=== PATIENT | female | born 1985 | race African-American/Black ===

== ENCOUNTER 2020-08-12 12:35 | Emergency (ER) | payer OTHER, SELFPAY ==
[2020-08-12 12:43] VITALS: BP 151/79; PULSE 93; RESP 16; TEMP 36.7; O2SAT 100
--- NOTE | 2020-08-12 13:02 | ED.EAR ---
HPI - Ear Problem General Chief complaint: Neck Pain/Injury Stated complaint: dizzy/lightheaded Time Seen by Provider: 08/12/20 13:02 Source: patient History of Present Illness HPI Narrative: Patient presents with bilateral ear pain dizziness at times. Patient states she was Covid 19+ last month and has finished her isolation per [facility]. Patient states she continues to have fatigue. No cough no shortness of breath no chest pain. Patient has not taken any [id number] for her symptoms. MD Complaint: ear pain Location: right ear Duration: intermittent Severity: mild Related Data Home Medications Medication Instructions Recorded Confirmed triamcinolone acetonide 08/12/20 08/12/20 Allergies Allergy/AdvReac Type Severity Reaction Status Date / Time hydrocodone Allergy Hives Verified 08/12/20 13:05 Penicillins Allergy Hives Verified 08/12/20 13:04 Sulfa (Sulfonamide Allergy Hives Verified 08/12/20 13:04 Antibiotics) Review of Systems Review of Systems: Narrative: CONSTITUTIONAL: Denies chills, or sweats. Reports fever and generalized body aches EYES: Denies visual changes, redness, or discharge. ENT: Denies otalgia. Reports nasal congestion runny nose and sore throat CARDIOVASCULAR: Denies chest pain, palpitations, or edema. RESPIRATORY: Denies dyspnea. Reports occasional cough GASTROINTESTINAL: Denies abdominal pain, nausea, vomiting, or diarrhea. GENITOURINARY: Denies dysuria or hematuria. SKIN: Denies rash or itching. MUSCULOSKELETAL: Denies back pain, joint pain, or myalgia. Reports generalized body aches NEUROLOGIC: Denies headache, numbness, or weakness. PSYCHIATRIC: Denies anxiety or depression. Constitutional: Constitutional: Reports as per HPI PMFSH Comments At time of signature, agree with nursing past medical, surgical, social and family history. There is no relevant family history pertinent to the presenting complaint Exam Narrative: Exam Narrative: The patient is a well-developed, well-nourished in no acute distress. SKIN: Skin is warm and dry without erythema, swelling or exudate. There is good turgor. No tenting. HEAD: Atraumatic. Normocephalic. No temporal or scalp tenderness. EYES: Moist and bright. Sclera and conjunctivae normal. No discharge. PERRLA. Extraocular motions intact. Gross visual acuity intact. EARS: Pinna is normal shape and contour.bilaterall cerumen noted no gross hearing deficit. right ear canal moderate erythema TM bulging left TM mild erythema right TM dullness mild postnasal drainage NOSE: pink, moist mucosa with good air movement. Clear rhinorrhea without nasal flaring. Septum midline. Mouth: moist mucous membranes. THROAT; mild erythema noted to posterior oropharynx with moderate postnasal drainage. Without exudate or ulceration.. Uvula midline. Normal movement of soft palate. NECK: Supple and nontender with full range of motion without discomfort. No meningeal signs. LUNGS: Equal and bilateral breath sounds without wheezes, rales or rhonchi. CHEST: The chest wall is without retractions or use of accessory muscles. HEART: Has a regular rate and rhythm without murmur, gallops, click or rub. ABDOMEN: Soft, nontender with positive active bowel sounds. No rebound tenderness. EXTREMITIES: Without cyanosis, clubbing or edema. Equal 2+ distal pulses and 2 second capillary refill noted. NEUROLOGIC: alert, active, . The patient moves all extremities with normal muscle strength. Normal muscle tone is noted. Normal coordination is noted. NO focal neurological findings noted. Course Vital Signs Vital signs: Vital Signs Temperature 36.7 C 08/12/20 12:43 Pulse Rate 93 08/12/20 12:43 Respiratory Rate 16 08/12/20 12:43 Blood Pressure 151/79 H 08/12/20 12:43 Pulse Oximetry 100 08/12/20 12:43 Temperature 36.7 C 08/12/20 12:43 Pulse Rate 93 08/12/20 12:43 Respiratory Rate 16 08/12/20 12:43 Blood Pressure 151/79 H 08/12/20 12:43 Pu
== END 2020-08-12 13:26 | disposition home or self-care (01) ==
PROVIDERS: Emergency Provider Nurse Practitioner Family; PCP Internal Medicine
DX: B33.8 Other specified viral diseases (principal); H67.3 Otitis media in diseases classified elsewhere, bilateral
CPT/HCPCS: 99213; G0463

== ENCOUNTER 2021-10-31 18:51 | Emergency (ER) | payer OTHER, SELFPAY ==
--- NOTE | ~2021-10-31 | XR_ITS ---
EXAMINATION: XR foot LT min 3V DATE: 10/31/2021 20:21 INDICATION: Left foot pain, initial encounter TECHNIQUE: Dorsoplantar, lateral, and 2 oblique views of the left foot were obtained. COMPARISON: None. FINDINGS: There is a linear heterotopic ossification projecting dorsal to the navicular on the latera l view. There is overlying the anterior soft tissue swelling overlying the tarsals. The joint spaces are maintained. Bone alignment is normal. IMPRESSION: 1. Possible dorsal tarsal avulsion injury. 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
--- NOTE | ~2021-10-31 | XR_ITS ---
EXAMINATION: XR tibia fibula LT 2V INDICATION: Left leg pain TECHNIQUE: Two views of the left tibia and fibula are obtained on four radiographs. COMPARISON: None available FINDINGS: Bone alignment is normal. There is no fracture. The soft tissues are unremarkable. IMPRESSION: 1. No acute osseous abnormality. Reviewed, dictated and finalized at location F. MANAGER
[2021-10-31 19:47] VITALS: BP 152/84; PULSE 84; RESP 16; TEMP 36.8; O2SAT 100
--- NOTE | 2021-10-31 20:21 | PC.NURSE ---
PT DECLINED ICE FOR COMFORT AND WHEELCHAIR TO RADIOLOGY
--- NOTE | 2021-10-31 20:35 | ED.LOWEXIN ---
HPI - Extremity Injury (Lower) General Chief Complaint: Extremity Injury, Lower Stated Complaint: lt leg pain Time Seen by Provider: 10/31/21 20:28 Source: patient and RN notes reviewed Mode of arrival: ambulatory Limitations: no limitations History of Present Illness HPI Narrative: Patient presents today complaining of an injury to her left leg and foot. She slipped on some ice earlier this morning going out her car. Her left leg slid underneath her car. Since that time she has had pain in her left first and second toe, the dorsum of her foot, and her left lower leg. She currently rates her pain /. She reports numbness and tingling to the first and second toes. She has been taking Tylenol and aspirin with some mild relief. She also soaked in some Epsom salt. Pain increases with weightbearing. MD complaint: leg injury and foot injury Related Data Home Medications Medication Instructions Recorded Confirmed triamcinolone acetonide 08/12/20 08/12/20 Allergies Allergy/AdvReac Type Severity Reaction Status Date / Time hydrocodone Allergy Hives Verified 10/31/21 20:47 Penicillins Allergy Hives Verified 10/31/21 20:47 Sulfa (Sulfonamide Allergy Hives Verified 10/31/21 20:47 Antibiotics) Review of Systems Review of Systems: CONSTITUTIONAL: Denies body aches, fever, chills, or sweats. EYES: Denies visual changes, redness, or discharge. ENT: Denies rhinorrhea, congestion, sore throat, or otalgia. CARDIOVASCULAR: Denies chest pain, palpitations, or edema. RESPIRATORY: Denies cough or dyspnea. GASTROINTESTINAL: Denies abdominal pain, nausea, vomiting, or diarrhea. GENITOURINARY: Denies dysuria or hematuria. SKIN: Denies rash, itching, or wounds. MUSCULOSKELETAL: Denies back pain, or myalgia. + Left foot and leg injury NEUROLOGIC: Denies headache, , or weakness. + Numbness and tingling to the left first and second toes PSYCH: Denies depression or anxiety. PMFSH Comments At time of signature, I have reviewed and agree with nursing past medical, surgical, social and family history unless otherwise noted. Please see nursing chart for further information. There is no relevant family history pertinent to the presenting complaint Exam Narrative: GENERAL: Well-appearing, well-nourished, and in no acute distress. HEAD: Normocephalic, atraumatic. EYES: EOMI. No redness or drainage. Conjunctivae normal. ENT: Mucous membranes pink and moist. NECK: Normal AROM. CHEST: No respiratory distress. EXTREMITIES: Left foot: Mild edema and ecchymosis to the left first toe. Tenderness to the first and second toes. Distal sensation intact in all toes. Capillary refill normal. Painful range of motion toes 1 and 2. Localized edema to the proximal dorsum of the foot. This extends laterally, just distal to the lateral malleolus. SKIN: Warm, dry, no rash. Capillary refill normal. Normal skin turgor. NEURO: No focal deficits. Alert and oriented x3. Gait steady. Patient ambulated to and from the x-ray. PSYCH: Normal affect. No signs of depression or anxiety. Course Course Level of Care: Express Care Visit Vital Signs Vital signs: Vital Signs Temperature 98.2 F 10/31/21 19:47 Pulse Rate 84 10/31/21 19:47 Respiratory Rate 16 10/31/21 19:47 Blood Pressure 152/84 H 10/31/21 19:47 Pulse Oximetry 100 10/31/21 19:47 Temperature 98.2 F 10/31/21 19:47 Pulse Rate 84 10/31/21 19:47 Respiratory Rate 16 10/31/21 19:47 Blood Pressure 152/84 H 10/31/21 19:47 Pulse Oximetry 100 10/31/21 19:47 Reviewed. Pt has been instructed to follow up with her PCP regarding her elevated blood pressure today. Procedures Orthopedic Splinting/Casting Injury #1: Splinting/Casting Date: 10/31/21 Splinting/Casting Time: 20:52 Side: left Lower Extremity Injury Location: foot Lower Extremity Immobilizer: posterior splint OCL: short leg Pre-Procedure Neuro Vascular Exam:
== END 2021-10-31 20:55 | disposition home or self-care (01) ==
PROVIDERS: Emergency Provider Nurse Practitioner; PCP Internal Medicine
DX: S92.902A Unspecified fracture of left foot, initial encounter for closed fracture (principal); W00.0XXA Fall on same level due to ice and snow, initial encounter
CPT/HCPCS: 29515; 73590; 73630; 99214; G0463

== ENCOUNTER 2022-01-11 14:33 | Emergency (ER) | payer OTHER, SELFPAY ==
[2022-01-11 14:38] VITALS: BP 147/78; PULSE 115; RESP 20; TEMP 37.1; O2SAT 98
--- NOTE | 2022-01-11 15:24 | ED.URI ---
HPI - URI/Sore Throat General Chief Complaint: Upper Respiratory Infection Stated Complaint: Congestion/Cough Time Seen by Provider: 01/11/22 15:24 Source: patient and RN notes reviewed Mode of arrival: ambulatory Limitations: no limitations History of Present Illness HPI Narrative: 36-year-old female presented for complaint of headache, body aches, sinus pressure/congestion, cough, fever/chills. For 3 days. Fever 101 today, did not take anything and temp went down to 98 per pt. Cough related to postnasal drainage per patient. Left ear pain worsening today. Denies sick contacts. She has not had flu vaccine. She is not boosted for COVID. Not taking anything for sx. MD elicited complaint: cough Related Data Home Medications Medication Instructions Recorded Confirmed No Home Medications 01/11/22 01/11/22 Allergies Allergy/AdvReac Type Severity Reaction Status Date / Time hydrocodone Allergy Hives Verified 01/11/22 14:52 Penicillins Allergy Hives Verified 01/11/22 14:52 Sulfa (Sulfonamide Allergy Hives Verified 01/11/22 14:52 Antibiotics) Review of Systems Review of Systems: CONSTITUTIONAL: Endorses malaise, chills, sweats, fever EYES: Denies visual changes, redness, or discharge ENT: Reports rhinorrhea, congestion, sinus pain, otalgia, sore throat CARDIOVASCULAR: Denies chest pain, palpitations, edema RESPIRATORY: Reports cough, post nasal drainage. Denies dyspnea GASTROINTESTINAL: Denies abdominal pain, nausea, vomiting, diarrhea SKIN: Denies rash or itching MUSCULOSKELETAL: Endorses myalgia NEUROLOGIC: Denies headache Exam Narrative: GENERAL: Ill-appearing, nontoxic HEAD: Normocephalic EYES: PERRLA, conjunctivae clear ENT: Mucous membranes moist. TM pearly cervantes with light reflex and erythematous canals bilaterally; no tragal tenderness. Oropharynx erythematous without lesions or exudate, no drooling, no hoarseness, no trismus, uvula midline. NECK: Supple. No lymphadenopathy CHEST: Clear to auscultation, breath sounds equal. No wheezing, rhonchi, rales, or stridor. No respiratory distress, speaks in full sentences. HEART: Regular rate and rhythm. No murmur heard. SKIN: Warm, dry, no rash. NEURO: Alert and oriented x3. PSYCH: Normal mood and affect Course Course Emergency Course: Patient is aware of diagnosis, understands and agrees to treatment plan. Anticipatory guidance given. Patient agrees to follow-up as directed and is aware of reasons to seek care at the emergency department. Portions of this record may have been created with voice recognition software Level of Care: Express Care Visit Vital Signs Vital signs: Vital Signs Temperature 98.8 F 01/11/22 14:38 Pulse Rate 115 H 01/11/22 14:38 Respiratory Rate 20 01/11/22 14:38 Blood Pressure 147/78 H 01/11/22 14:38 Pulse Oximetry 98 01/11/22 14:38 Temperature 98.8 F 01/11/22 14:38 Pulse Rate 115 H 01/11/22 14:38 Respiratory Rate 20 01/11/22 14:38 Blood Pressure 147/78 H 01/11/22 14:38 Pulse Oximetry 98 01/11/22 14:38 reviewed MDM - URI/Sore Throat MDM Narrative Medical decision making narrative: covid and flu tests negative. pt is appropriate for outpt treatment and f/u. Differential Diagnosis Differential diagnosis: Likely upper respiratory infection, sinusitis and viral infection Lab Data Labs: Lab Results 01/11/22 Range/Units 15:42 POC SARS CoV-2 Ag Negative (Negative) Influenza A Screen Negative Reference Range: Negative Influenza B Screen Negative Reference Range: Negative Discharge Plan Discharge Clinical Impression: Upper respiratory infection Qualifiers: URI type: unspecified URI Qualified Code(s): J06.9 - Acute upper respiratory infection, unspecified Patient Disposition: Home, Self-Care Condition: Stable Instructions: Antibiotic Form
== END 2022-01-11 16:13 | disposition home or self-care (01) ==
PROVIDERS: Emergency Provider Nurse Practitioner Family; PCP Internal Medicine
DX: J06.9 Acute upper respiratory infection, unspecified (principal); Z20.822 Contact with and (suspected) exposure to COVID-19
CPT/HCPCS: 87426; 87804; 99213; C9803; G0463

== ENCOUNTER 2022-10-04 16:31 | Emergency (ER) | payer OTHER, SELFPAY ==
[2022-10-04 16:46] VITALS: BP 131/67; PULSE 98; RESP 16; TEMP 36.8; O2SAT 98
--- NOTE | 2022-10-04 17:51 | ED.URI ---
HPI - URI/Sore Throat General Chief Complaint: Upper Respiratory Infection Stated Complaint: Cough/Shortness of Breath Time Seen by Provider: 10/04/22 17:51 Source: patient, RN notes reviewed and old records reviewed Mode of arrival: ambulatory Limitations: no limitations History of Present Illness HPI Narrative: 37-year-old female presents [facility] with complaints of testing positive to COVID on 09/27/2022 states that she needs and negative COVID test note to return to. Patient states she still is running low-grade fevers did have a fever at 2:00 a.m. this morning so was unable to return to work today she has medicated with Tylenol and ibuprofen today. Patient did take course of Paxlovid. Patient reports that she still has some inteemittent dizziness, SOB with exertion and cough MD elicited complaint: fever (Low-grade fever) and cough Pertinent past history: other (diagnosed with COVID 09/27/2022 took Paxlovid ) Onset (ago): day(s) (7-8 days) Treatments prior to arrival: acetaminophen, ibuprofen and other (Mucinex) Related Data Allergies Allergy/AdvReac Type Severity Reaction Status Date / Time hydrocodone Allergy Hives Verified 10/04/22 16:50 Penicillins Allergy Hives Verified 10/04/22 16:50 Sulfa (Sulfonamide Allergy Hives Verified 10/04/22 16:50 Antibiotics) Review of Systems Review of Systems: CONSTITUTIONAL: Reports malaise, chills, sweats, or fever. EYES: Denies visual changes, redness, or discharge. ENT: Reports rhinorrhea, congestion, sinus pain, no otalgia or sore throat. CARDIOVASCULAR: Denies chest pain, palpitations, or edema. RESPIRATORY: Reports cough.?Reports some dyspnea with exertion. GASTROINTESTINAL: Denies abdominal pain, nausea, vomiting, diarrhea SKIN: Denies rash or itching. MUSCULOSKELETAL: Denies present myalgia. NEUROLOGIC: Denies headache.reports some dizziness. 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 There is no relevant family history pertinent to the presenting complaint Exam Narrative: GENERAL: Well-appearing, well-nourished, and in no acute distress. HEAD: Normocephalic EYES: PERRLA, conjunctivae clear ENT: Nares clear, turbinates edematous and erythematous, clear discharge. Mucous membranes moist. TM pearly cervantes with dull light reflex bilaterally; no tragal tenderness. Oropharynx erythematous without lesions. Tonsils not enlarged and without exudate, no drooling, no hoarseness, no trismus, uvula midline. NECK: Supple. No lymphadenopathy CHEST: Clear to auscultation, breath sounds equal. No wheezing, rhonchi, rales, or stridor. No respiratory distress, speaks in full sentences.dry cough, SAO2 98% on room air HEART: Regular rate and rhythm. No murmur heard. SKIN: Warm, dry, no rash. NEURO: Alert and oriented x3. PSYCH: Normal mood and affect Course Course Emergency Course: Patient is aware of diagnosis, understands and agrees to treatment plan.? Anticipatory guidance given.? Patient agrees to follow-up as directed and is aware of reasons to seek care at the emergency department. Portions of this record may mayes
== END 2022-10-04 18:00 | disposition home or self-care (01) ==
PROVIDERS: Emergency Provider Registered Nurse; PCP Internal Medicine
DX: J06.9 Acute upper respiratory infection, unspecified (principal); Z20.822 Contact with and (suspected) exposure to COVID-19; Z86.16 Personal history of COVID-19; G47.30 Sleep apnea, unspecified
CPT/HCPCS: 87426; 99213; C9803; G0463